=== PATIENT | female | born 2000 | race Caucasian/White ===

== ENCOUNTER 2025-01-12 12:50 | Emergency (ER) | payer MEDICARE, SELFPAY ==
--- NOTE | ~2025-01-12 | CT_ITS ---
EXAMINATION: CT ABDOMEN PELVIS WITH IV CONTRAST HISTORY: RLQ abd pain, N/V/D, syncope COMPARISON: There are no prior studies for comparison. TECHNIQUE: CT scan of the abdomen and pelvis was performed following administration of 85 mL Omnipaque 350 using standard departmental protocol. Coronal and sagittal reformatted images were generated and reviewed. Oral contrast material was not administered at the request of the referring physician. This CT exam was performed with one or more of the following dose reduction techniques: automated exposure control, adjustment of the mA and/or kV according to patient size, use of iterative reconstruction technique. DLP: 1417 mGy-cm FINDINGS: LOWER CHEST: There is mild subsegmental atelectasis at both lung bases. There is no pleural effusion. CARDIOVASCULATURE: The heart is normal in size. There is no pericardial effusion. LIVER: The liver is normal in size and contour. No liver mass is identified. The hepatic and portal veins are patent. GALLBLADDER / BILE DUCTS: The gallbladder is unremarkable. There is no intra or extrahepatic biliary ductal dilatation. SPLEEN: The spleen is normal in size. No focal splenic lesion is identified. PANCREAS: The pancreas is unremarkable in appearance. ADRENAL GLANDS: Within normal limits. KIDNEYS/RETROPERITONEUM: No renal calculi are identified. There is no hydronephrosis. No renal masses are identified. LYMPH NODES: No abdominal or pelvic lymphadenopathy. VASCULATURE: The abdominal aorta is normal in caliber. MESENTERY/PERITONEUM: No free fluid. No masses. There is no free intraperitoneal gas. STOMACH: The stomach is collapsed, limiting evaluation. SMALL BOWEL: The small bowel is normal in caliber. COLON: The colon is unremarkable. APPENDIX: Normal. URINARY BLADDER/PELVIC ORGANS: The urinary bladder is collapsed, limiting evaluation. The uterus is unremarkable. BONES / SOFT TISSUES: No suspicious bony or soft tissue abnormalities. CT/CT abdomen pelvis w IV con IMPRESSION: Unremarkable contrast-enhanced CT of the abdomen and pelvis. Electronically signed by: Yosef Hoyt MD 01/12/2025 03:21 PM [facility]
--- NOTE | ~2025-01-12 | CT_ITS ---
EXAMINATION: CT HEAD WITHOUT CONTRAST CLINICAL INFORMATION: Syncope, fall, LOC, head strike COMPARISON: None available. TECHNIQUE: Contiguous axial imaging was performed from the skull base to vertex without intravenous administration of contrast. This CT examination was performed using dose optimization techniques as appropriate, variously including the following: *Automated exposure control *Adjustment of mA and/or kV according to patient size (this includes techniques or standardized protocols for targeted exams where dose is matched to indication/reason for exam; i.e. extremities or head) *Use of iterative reconstruction technique DLP: 648 mGy-cm FINDINGS: Bony calvarium is intact. Skull base is intact. No acute intracranial hemorrhage, mass effect, midline shift, hydrocephalus or herniation. Lucero-white matter differentiation is normal. Posterior cranial fossa contents demonstrated no acute intracranial hemorrhage or mass effect. Polypoid mucosal thickening, maxillary sinuses. Sellar/suprasellar region demonstrated no gross masses. Tympanic cavities and mastoid air cells are aerated. No air-fluid levels in the included paranasal sinuses. CT/CT head/brain wo IV con IMPRESSION: No acute fracture, bony calvarium. No acute intracranial hemorrhage. Electronically signed by: Aguila Hoyos MD 01/12/2025 03:18 PM [facility]
--- NOTE | 2025-01-12 12:55 | ED.ABDPAIN ---
HPI - Abdominal Pain General Chief Complaint: Abdominal Pain Stated Complaint: RLQ PAINVOMITING,SYNCOPE PER EMS Time Seen by Provider: 01/12/25 12:55 Source: patient, EMS, RN notes reviewed and old records reviewed Mode of arrival: EMS History of Present Illness ED Provider: Mojgan Nguyen PA-C HPI narrative: 24-year-old female with a past medical history anemia, anxiety, presenting to the ED via EMS complaining of RLQ abdominal pain, nausea, vomiting, diarrhea since 05:00AM with syncopal episode this morning with +head strike & LOC on kitchen island. Admits to headache and continued nausea. Denies anticoagulation use. Reports blood streaks in emesis. Denies fever, chills, recent travel, suspicious food intake, sick contacts, dysuria/hematuria. LMP 3 weeks ago. Related Data Previous Rx's ?Medication ?Instructions ?Recorded ondansetron 4 mg disintegrating 4 mg PO Q8H PRN nausea and 01/12/25 tablet vomiting #10 tabs Allergies Allergy/AdvReac Type Severity Reaction Status Date / Time Penicillins Allergy Hives Verified 01/12/25 13:11 acetaminophen [From Tylenol] AdvReac Unknown Verified 01/12/25 13:11 aspirin [ASA] AdvReac Unknown Verified 01/12/25 13:11 Review of Systems Review of Systems Yes all other systems are reviewed and are negative Constitutional: Reports as per HPI Denies Abnormal speech present [facility] Past Medical History Attestation statement: The following information was validated with the patient. Source: old records reviewed Social History Social History Smoked in Last 30 Days: No Use of substances other than those prescribed or required for medical reasons: Yes Substance Use Type: Marijuana Advance Directives: No Advance Directives Information Provided: Yes Do you have a plan to hurt others: No Plan Physical Exam ED Vital Signs: Vital Signs - 24 hr 01/12/25 13:02 01/12/25 13:29 01/12/25 13:30 Temperature 98.5 F Pulse Rate 81 73 77 Respiratory Rate 20 Blood Pressure 105/58 L 95/51 L 100/61 Pulse Oximetry 96 Oxygen Delivery Method Room Air 01/12/25 13:30 01/12/25 16:28 Temperature Pulse Rate 92 82 Respiratory Rate 16 Blood Pressure 95/57 L 117/78 Pulse Oximetry 99 Oxygen Delivery Method Room Air BMI result Body Mass Index 40.0 Const General: cooperative, healthy appearing and no acute distress Orientation/consciousness: patient oriented x3 Limitations: no limitations HENMT Head: Yes normal to inspection, Yes No palpable skull fracture present, Yes atraumatic, No Avendano's sign and No raccoon eyes Ears: hearing grossly normal bilaterally General nose exam: Normal external nose present Face and sinus: Yes normal facial exam Mouth: Normal oral and palatal mucosa present Throat: Yes posterior oropharynx normal, Yes tonsils normal, Yes uvula midline, No peritonsillar mass, No uvula laterally displaced and No uvular edema Eyes General: appearance normal, both eyes and all related structures Pupils: Equal, round and reactive pupils present EOM: EOMs intact bilaterally Neck Neck: Yes normal visual inspection and Yes no meningeal signs Resp Effort & Inspection: normal respiratory effort and no respiratory distress Auscultation: clear to auscultation bilaterally, no crackles and no wheezes Cardio Rate: regular rate Heart sounds: S1 normal heart sound present and S2 normal heart sound present GI Inspection: Yes normal to inspection Palpation (GI): Soft to palpation, Tenderness to palpation present (GI) in the RLQ; with no rebound tenderness, no guarding and not rigid General: Yes no CVA tenderness Back/Spine/Pelvis Back: no CVA tenderness Skin Rashes: no rashes Wounds: no wounds Neuro General: patient oriented x3, tone normal, moves all extremities, no meningeal signs, no focal motor deficits and CN's II-XI intact bilaterally Cranial nerves: Yes CN's II-XII intact bilaterally, Yes Equal, round and reactive pupils present and Yes Bilaterally intact EOM present Cognition (Neuro): normal cognition Speech: No Abnormal speech present Motor exam (neuro): 5/5 motor strength present throughout Extrem General: Yes normal to inspection Course Course Course Narrative: -1528--mild leukocytosis at 13.1. H/H is stable. Labs otherwise reassuring. Troponin negative. HCG negative. -COVID/flu/RSV testing negative CT head/brain wo IV con IMPRESSION: No acute fracture, bony calvarium. No acute intracranial hemorrhage. CT abdomen pelvis w IV con IMPRESSION: Unremarkable contrast-enhanced CT of the abdomen and pelvis. -orthostatic vital signs negative. > will p.o. trial and obtain stool studies if patient is able to provide sample -UA not infected, contaminated >> patient is tolerating p.o. in the ED without difficulty. Unable to provide stool sample for us. Feels comfortable for discharge home at this time. Will discharge home with prescription of Zofran Medical Decision Making Medical Decision Making [facility] Narrative: 24-year-old female with a past medical history anemia, anxiety, presenting to the ED via EMS complaining of RLQ abdominal pain, nausea, vomiting, diarrhea since 05:00AM with syncopal episode this morning with +head strike & LOC on kitchen island. On exam vital signs stable, NAD, nontoxic appearing, no focal neuro deficits, abdomen is soft with RLQ tenderness, no rebound or guarding, no CVAT. Concern for appendicitis vs ?Ectopic vs gastroenteritis/colitis vs dehydration. Concern for vasovagal syncope. Lower suspicion for ICH/fractures or meningitis/encephalitis. Plan: EKG, labs, UA, head CT, CT AP, IVF, re-evaluate Please refer to course for remaining clinical decision making, interpretation of labs/imaging results, and discussions with consultants and/or family members. Differential Diagnosis Differential Diagnoses: The differential diagnosis associated with the presentation includes As above Admission/Observation Consideration of admission/observation: Escalation of care including admission/observation considered Lab Data [facility] Lab Attestation statement: I reviewed the patient's lab results. 01/12/25 13:45 01/12/25 13:45 Labs: Lab Results 01/12/25 01/12/25 Range/Units 13:45 16:30 WBC 13.1 H (4.8-10.8) X10*3/uL RBC 4.02 L (4.20-5.50) X10*6/uL Hgb 11.8 L (12.0-16.0) g/dl Hct 35.1 L (37.0-47.0) % MCV 87.3 (80.0-98.0) fL MCH 29.4 (27.0-33.0) pg MCHC 33.6 (31.0-35.0) g/dl RDW 12.9 (11.0-16.0) % Plt Count 254 (160-400) X10*3/uL MPV 10.0 (9.4-12.3) fL Immature Gran % (Auto) 0.5 H (0.0-0.4) % Neut % (Auto) 94.2 H (45-73) % Lymph % (Auto) 2.0 L (20-40) % [place] % (Auto) 2.9 (2-11) % Eos % (Auto) 0.2 (0-4) % Baso % (Auto) 0.2 (0-2) % Lymph # (Auto) 0.3 L (1.2-4.9) X10*3/uL [place] # (Auto) 0.4 (0.1-1.2) X10*3/uL Eos # (Auto) 0.0 (0.0-0.4) X10*3/uL Baso # (Auto) 0.0 (0.0-0.2) X10*3/uL Abs Immat Gran (auto) 0.06 H (0.00-0.03) X10*3/uL Absolute Neuts (auto) 12.4 H (2.0-8.3) x10*3/uL Absolute Nucleated RBC 0.000 (0.0-0.012) X10*3/uL Nucleated RBC % (auto) 0.0 (0.0-0.2) /100WBC Smear Tech's Comments VERIFIED PT 11.9 (10.9-12.4) SEC INR 1.0 (0.9-1.1) Sodium 139 (135-145) mmol/L Potassium 4.1 (3.3-5.1) mmol/L Chloride 110 H (96-108) mmol/L Carbon Dioxide 21 L (22-29) mmol/L Anion Gap 12 (12-20) BUN 16 (9-16) mg/dL Creatinine 0.90 (0.5-1.4) mg/dL Estim Creat Clear Calc 142.5 Estimated GFR > 60 Random Glucose 108 (60-115) mg/dL Calcium 9.4 (8.4-10.2) mg/dL Magnesium 2.0 (1.6-2.6) mg/dL Total Bilirubin 0.4 (0.0-1.0) mg/dL Direct Bilirubin 0.1 (0.0-0.5) mg/dL AST 19 (5-31) U/L ALT 12 (0-31) U/L Alkaline Phosphatase 100 (39-117) U/L Troponin I High Sens < 2.7 (<3.5-17.0) ng/L Total Protein 7.9 (6.5-8.0) g/dL Albumin 4.5 (3.5-5.0) g/dL Lipase 48 (8-78) U/L Beta HCG, Quant < 2 mIU/mL Urine Color Yellow Urine Appearance Clear Urine pH 8.0 (5.0-9.0) Ur Specific [place] >= 1.030 H (1.005-1.025) Urine Protein 30 (1+) H (Neg-Trace) mg/dL Urine Glucose (UA) Negative (Negative) mg/dL Urine Ketones Negative (Negative) mg/dL Urine Blood Negative (Negative) Urine Nitrite Negative (Negative) Ur Leukocyte Esterase Negative (Negative) Urine RBC 0-2 (0-2) /HPF Urine WBC 0-5 (0-5) /HPF Ur Squamous Epith Cells 11-20 (0-2) /HPF Urine Bacteria 1+ (None Seen) Hyaline Casts 0-2 (0-2) /LPF Influenza Type A (PCR) NEGATIVE (Negative) Influenza Type B (PCR) NEGATIVE (Negative) RSV RNA Qual (PCR) NEGATIVE (Negative) SARS-CoV-2 RNA (RT-PCR) NEGATIVE (Negative) Independent Interpretation I performed an independent interpretation of an: EKG and CT Scan Radiology Impression Discussion of test interpretation with radiology: I have reviewed the radiologist's reading. Independent Historian Clinical information obtained from an independent historian. History obtained from or confirmed by: EMS External Record Review External record reviewed: Inpatient record, Office record, Outpatient record, Prior outpatient labs, Prior outpatient radiology, Primary care record and Outside ED record Tests considered The following testing was considered but not selected: As above Prescription Management I considered prescription management with: Pain Medication Chronic Conditions Patient?s care impacted by: Other Social Determinants Patient?s care significantly limited by Social Determinants of Health including: Other Social Determinant of Health Medications Administered Discontinued Medications Generic Name Dose Route Start Last Admin Trade Name Freq PRN Reason Stop Dose Admin Al Hydroxide/Mg Hydroxide 30 ml 01/12/25 15:34 01/12/25 15:40 Magnesium Hydrox/Alum Hydrox 30 Ml Oral.Susp PO 01/12/25 15:35 Not Given ONCE ONE Famotidine 20 mg 01/12/25 13:06 01/12/25 13:30 Famotidine/Pf 20 Mg/2 Ml Vial IVPUSH 01/12/25 13:07 20 mg ONCE ONE Administration Sodium Chloride 1,000 mls @ 999 mls/hr 01/12/25 13:15 01/12/25 17:16 Ns IV 01/12/25 14:15 Infused .Q1H1M WILLIS Infusion Iohexol 100 ml 01/12/25 14:57 01/12/25 14:57 Iohexol 350 Mg/Ml 100 Ml Infus..Btl IV 01/12/25 14:58 85 ml ONCE ONE Administration Discharge Plan Discharge Clinical Impression: Gastroenteritis, Vasovagal syncope Patient Disposition: Home, Self-Care Instructions: Syncope (DC), Gastroenteritis (DC) Additional Instructions: You likely have viral gastroenteritis Zofran as an antinausea medication, please take as prescribed Your blood work and imaging studies are reassuring today No antibiotics are indicated at this time Make sure you are staying hydrated. Drink plenty of fluids. Rest Alternate Tylenol and Motrin at home as needed for body aches and fever Follow-up with your doctor. If symptoms persist or worsen return to the emergency department *If you are a child & not tolerating liquid or urinating for more than 6 hours, or fevers are uncontrolled with medications at home, return to the emergency department* Prescriptions: New ondansetron 4 mg tablet,disintegrating 4 mg PO Q8H PRN (Reason: nausea and vomiting) Qty: 10 0RF Referrals: Luba Hyde MD [Primary Care Provider] - 3 days Print Language: Panamanian
[2025-01-12 12:58] VITALS: BP 105/65; PULSE 80; O2SAT 95
[2025-01-12 13:02] VITALS: BP 105/58; PULSE 81; RESP 20; TEMP 36.9; O2SAT 96; BMI 40.0
--- NOTE | 2025-01-12 13:06 | ECG_ITS ---
Test Reason : SYNCOPE Blood Pressure : */* mmHG Vent. Rate : 84 BPM Atrial Rate : 84 BPM P-R Int : 162 ms QRS Dur : 84 ms QT Int : 360 ms P-R-T Axes : 38 23 30 degrees QTcB Int : 425 ms Normal sinus rhythm with sinus arrhythmia Normal ECG No previous ECGs available Referred By: Mojgan Nguyen Electronically Signed By: DARRELL HA MD
--- NOTE | 2025-01-12 13:18 | PC.NURSE ---
pt is alert and oriented, skin pwd, respirations even and unlabored, pt reports around 0500 started with vomiting/diarrhea and right sided abd pain, after one of the vomiting episodes felt really lightheaded and passed out in her kitchen hitting the left side of her head on a kitchen counter, bowel sounds in 4 quadrants, abd soft but slightly tender on the right mid/lower abd, vs stable and ns on the monitor
[2025-01-12 13:29] VITALS: BP 95/51; PULSE 73
[2025-01-12 13:30] VITALS: BP 100/61; BP 95/57; PULSE 77; PULSE 92
[2025-01-12] MEDS: Famotidine/PF 20 MG/2 ML VIAL IVPUSH (13:30)
[2025-01-12] MEDS: 0.9 % Sodium Chloride 1,000 ML 999 ML IV (13:31)
[2025-01-12 13:54] LABS: Basophils Percent Auto 0.2 % (0-2); Eosinophils Percent Auto 0.2 % (0-4); Hematocrit 35.1 % (37.0-47.0); Hemoglobin 11.8 g/dl (12.0-16.0); Imm Gran Abs Auto 0.06 X10*3/uL (0.00-0.03); Imm Gran Pct Auto 0.5 % (0.0-0.4); Lymphocytes Absolute Auto 0.3 X10*3/uL (1.2-4.9); MANUAL DIFF FLAG SCAN; Mean Corpuscular HGB Conc 33.6 g/dl (31.0-35.0); Mean Corpuscular Hemoglobin 29.4 pg (27.0-33.0); Mean Corpuscular Volume 87.3 fL (80.0-98.0); Monocytes Absolute Auto 0.4 X10*3/uL (0.1-1.2); Monocytes Percent Auto 2.9 % (2-11); Neutrophils Absolute Auto 12.4 x10*3/uL (2.0-8.3); Neutrophils Percent Auto 94.2 % (45-73); Platelet Count 254 X10*3/uL (160-400); Red Blood Count 4.02 X10*6/uL (4.20-5.50); Red Cell Distribution Width 12.9 % (11.0-16.0); SCAN SMEAR FLAG 1; White Blood Count 13.1 X10*3/uL (4.8-10.8)
[2025-01-12 14:03] LABS: Prothrombin Time 11.9 SEC (10.9-12.4)
[2025-01-12 14:14] LABS: SLIDE REVIEW VERIFIED
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
--- OUTSIDE RECORDS SUMMARY | 2025-01-12 14:15 | XMS_ITS | Clinical Summary ---
Author Organization 175 [facility] Address [address] [place] [address] Phone Care Team Providers Care Industrial Electrician Name Role Phone Luba Hyde MD Primary Care Provider [phone] Allergies Active Allergy Reactions Criticality Noted Date Comments Amoxicillin 05/06/2023 Horse Dander 10/17/2021 Horse : Any pet fur Other 05/06/2023 cucumbers Shellfish Containing Products High 2020 [employer] [place] Hives 02/17/2024 Throat gets itchy Medications acetaminophen (TYLENOL) 500 mg tablet Take 1 tablet by mouth every 8 hours as needed for Fever or Pain. Active albuterol HFA (PROAIR HFA ; PROVENTIL HFA ; VENTOLIN HFA) 90 mcg/actuation inhaler INHALE 2 PUFFS INTO THE LUNGS EVERY 4 HOURS NEEDED FOR WHEEZING OR SHORTNESS OF BREATH. 3 Active benzonatate (TESSALON) 100 mg capsule Take 1 Capsule by mouth 3 times daily as needed for Cough. 4 Active budesonide (RHINOCORT AQ) 32 mcg/actuation nasal spray 2 Sprays by Nasal route daily. Two sprays into each nostril daily. Active cetirizine (ZyrTEC) 10 mg tablet Take 1 Tablet by mouth daily. 4 Active diphenhydrAMINE (BENADRYL) 25 mg capsule Take 25 mg by mouth at bedtime as needed for Itching. Active etonogestrel-elut ing contraceptive device (Nexplanon) 68 mg implant subdermal implant Inject 68 mg into the skin Once. 4 Active famotidine (PEPCID) 20 mg tablet Take 40 mg by mouth 2 times daily. Active fexofenadine (JOANNA) 180 mg tablet Take 1 Tablet by mouth daily. 1 tab nightly 4 Active fluticasone furoate (Arnuity Ellipta) 200 mcg/actuation blister with device inhaler Inhale 2 Puffs into the lungs 2 times daily. 4 Active fluticasone HFA (FLOVENT HFA) 110 mcg/actuation inhaler Inhale 2 Puffs into the lungs 2 times daily. Active ibuprofen (ADVIL,MOTRIN) 800 mg tablet Take 1 Tablet by mouth every 8 hours as needed for Pain (heavy and painful periods). 3 Active lamoTRIgine (LaMICtal) 200 mg tablet Take 200 mg by mouth at bedtime. Total daily dose of 350mg. Active levothyroxine (SYNTHROID, LEVOTHROID) 137 mcg tablet Take 1 Tablet by mouth daily. 4 Active LORazepam (ATIVAN) 0.5 mg tablet Take 1 Tablet by mouth every 4 hours as needed. Active montelukast (SINGULAIR) 10 mg tablet Take 1 Tablet by mouth at bedtime for 360 days. 4 04/22/20 25 Active OLANZapine (ZyPREXA) 5 mg tablet Take 5 mg by mouth at bedtime. Active pantoprazole (PROTONIX) 20 mg EC tablet TAKE 1 TABLET BY MOUTH DAILY. 4 Active sertraline (ZOLOFT) 50 mg tablet Take 75 mg by mouth at bedtime. Take 1 and a 1/2 tablet by mouth every night. Active valACYclovir (VALTREX) 500 mg tablet Take 1 Tablet by mouth daily. 4 Active trazodone HCl (TRAZODONE ORAL) Take 100 mg by mouth at bedtime. Active polyethylene glycol (PEG) 17 gram/dose oral powder Take 17 g by mouth at bedtime. If loose stools x 2 d, give qod. Active ferrous sulfate 325 mg (65 mg iron) EC tablet TAKE 1 TABLET BY MOUTH DAILY. 30 tablet 4 4 Active metFORMIN (GLUCOPHAGE) 850 mg tablet Take 1 tablet (850 mg total) by mouth 1 (one) time each day with breakfast. 90 tablet 4 Active ondansetron (ZOFRAN) 4 mg tablet Take 1 tablet (4 mg total) by mouth every 8 (eight) hours if needed for nausea or vomiting. for nausea 30 tablet 1 5 01/08/20 25 Active Problems Problem Noted Date Diagnosed Date Asthma 01/29/2024 Gastroesophageal reflux disease without esophagi tis 10/17/2021 Marijuana use 10/17/2021 Obesity (BMI 30-39.9) 10/17/2021 Acquired flat foot 10/04/2021 Overview (09/14/2024): Wearing orthotics. Allergic rhinitis 10/04/2021 Anemia 10/04/2021 Chronic low back pain 10/04/2021 Overview (09/14/2024): Midline, without sciatica. Followed by PSS, did PT w/ good effect. Chandni's thyroiditis 10/04/2021 Mild intermittent asthma 10/04/2021 PTSD (post-traumatic stress disorder) 10/04/2021 Overview (09/14/2024): Med mngmt by [facility], living in supportive program, has case checker. Encounters Date Type Department Care Team Description 12/09/2024 11:15 AM EST Office Visit Internal Medicine [address] [phone] Olu Davis MD Dysmenorrhea (Primary Dx); Gastroesophageal reflux disease without esophagitis; Nausea and vomiting, unspecified vomiting type; Positive urine test 12/01/2024 Telephone Internal Medicine [address] [phone] Luba Hyde MD Abdominal Pain 11/04/2024 Telephone Internal Medicine [address] [phone] Jennifer Pichardo MA Request For Order(s) ([facility] Order #[id number]/) 11/03/2024 Telephone Internal Medicine [address] [phone] Jennifer Pichardo MA Request For Order(s) ([facility] Order #[id number]/) 11/02/2024 Telephone Internal Medicine - [address] [place] [address] Luba Hyde MD Faxed form from Last 3 Months Immunizations Name Administration Dates Next Due Influenza Quadravalent, MDCK , 0.5ml, preservative free (Flucelvax) 6mo and older 10/17/2021 Surgical History Surgery Date Site/Laterality Comments WISDOM TOOTH EXTRACTION PROCEDURE: HISTORICAL WISDOM TEETH EXTRACTION Medical History Medical History Date Comments Environmental allergies 10/04/2021 DX:Envir onmental allergies; COMMENT: Positive RAST, animals w/ fur, horses, ragweed, grass, pollen, trees, pollen extract. Allergic rhinitis 10/04/2021 DX:Allergic rh initis Mild intermittent asthma 10/04/2021 DX:Mild intermittent asthma Anemia 10/04/2021 DX:Anemia Chandni's thyroiditis 10/04/2021 DX:Omar wu's thyroiditis Chronic low back pain 10/04/2021 DX:Chronic low back pain; COMMENT: Midline, without sciatica. Followed by [facility], did PT w/ good effect. Acquired flat foot 10/04/2021 DX:Acquired f lat foot; COMMENT: Wearing orthotics. PTSD (post-traumatic stress disorder) 10/04/2021 DX:PTSD (post-traumatic stress disorder); COMMENT: Med mngmt by [facility], living in supportive program, has case checker. Nexplanon in place DX:Nexplanon in place; COMMENT: 01/2022 at [facility] per pt report Family History Medical History Relation Name Comments No Known Problems Maternal Grandfather Breast cancer Maternal Grandmother Breast cancer Mother Cervical cancer Mother No Known Problems Paternal Grandfather No Known Problems Paternal Grandmother Uterine cancer Neg Hx Relation Name Status Comments Maternal Grandfather Maternal Grandmother Mother Alive Paternal Grandfather Paternal Grandmother Social History Tobacco Use Types Packs/Day Years Used Date Smoking Tobacco: Never Smokeless Tobacco: Never Alcohol Use Standard Drinks/Week Comments Yes 0 (1 standard drink = 0.6 oz pur e alcohol) Comments Unknown Sex and Gender Information Value Date Recorded Sex Assigned at Not on file Legal Sex Female 7:47 PM EST Gender Identity Not on file Sexual Orientation Not on file Obstetrics History Last Filed Vital Signs Vital Sign Reading Time Taken Comments Blood Pressure 110/70 12/09/2024 11:13 AM EST Pulse 81 12/09/2024 11:13 AM EST Temperature 36.7 ??C (98.1 ??F) 12/09/2024 11:[address] Respiratory Rate - - Oxygen Saturation 98% 12/09/2024 11:13 AM EST Inhaled Oxygen Concentration - - Weight 122 kg (269 lb 9.6 oz) 12/09/2024 11:13 A M EST Height 180.3 cm (5' 11 ) 05/10/2024 2:15 PM EDT Body Mass Index 37.6 05/10/2024 2:15 PM EDT Plan of Treatment Upcoming Encounters Date Type Department Care Team (Late st Contact Info) Description 01/13/2025 8:30 AM EST Office Visit [facility] Hematology Oncology [address] [place] [address] Anika Negron PA [address] [place] [address] 02/17/2025 1:00 PM EDT Office Visit Obstetrics and Gynecology - [address] [phone] Pebbles Vargas, [place] [address] [place] [address] 02/22/2025 9:00 AM EDT Office Visit Internal Medicine - [place] [address] [phone] Luba Hyde MD [address] [phone] 03/03/2025 10:00 AM EDT Consult Endocrinology - [address] [phone] Liz Lopez MD [address] [place] [address] Health Maintenance Due Date Last Done Comments HPV Vaccines (1 - 3-dose series) 2014 DTaP,Tdap,and Td Vaccines (1 - Tdap) 2018 Hepatitis A Vaccines (1 of 2 - Risk 2-dose series) 2018 Hepatitis B Vaccines (1 of 3 - 19+ 3-dose series) 2018 Pneumococcal Vaccine: Pediatrics (0 to 5 Years) and At-Risk Patients (6 to 64 Years) (1 of 2 - PCV) 2018 Depression Screening 11/01/2022 Medicare Annual Wellness Visit 11/01/2022 Social Influencers of Health Screening 11/01/2022 COVID-19 Vaccine (1 - 2023-2 5 season) 2024 Influenza Vaccine (#1) 2024 10/17/2021 Cervical Cancer Screening: Pap Smear 03/03/2026 03/03/2023, 03/03/2023, 03/03/2023 Cholesterol Screening (Lipid Panel) 01/07/2028 01/07/2023 Gonorrhea/Chlamydia Screening Discontinued 02/17/2024 HIV Screening Completed 02/17/2024 Hepatitis C Screening Completed 02/17/2024 HIB Vaccines Aged Out No longer eligi ble based on patient's age to complete this topic IPV Vaccines Aged Out No longer eligi ble based on patient's age to complete this topic MMR Vaccines Aged Out No longer eligi ble based on patient's age to complete this topic Meningococcal ACWY Vaccine Aged Out N o longer eligible based on patient's age to complete this topic Meningococcal B Vacine Aged Out No lo nger eligible based on patient's age to complete this topic RSV Immunization Patients Under 20 months Aged Out No longer eligible based on patient's age to complete this topic Varicella Vaccines Aged Out No longer eligible based on patient's age to complete this topic Procedures Procedure Name Priority Date/Time Associated Diagnosis Comments CBC WITH AUTO DIFFERENTIAL Routine 12/09/2024 11:34 AM EST Dysmenorrhea Gastroesophageal reflux disease without esophagitis Nausea and vomiting, unspecified vomiting type LIPASE Routine 12/09/2024 11:34 AM EST Dysmenorrhea Gastroesophageal reflux disease without esophagitis Nausea and vomiting, unspecified vomiting type THYROID STIMULATING HORMONE Routine 12/09/2024 11:34 AM EST Dysmenorrhea Gastroesophageal reflux disease without esophagitis Nausea and vomiting, unspecified vomiting type COMPREHENSIVE METABOLIC PANEL Routine 12/09/2024 11:34 AM EST Dysmenorrhea Gastroesophageal reflux disease without esophagitis Nausea and vomiting, unspecified vomiting type CBC AND DIFFERENTIAL Routine 12/09/2024 11:34 AM EST Dysmenorrhea Gastroesophageal reflux disease without esophagitis Nausea and vomiting, unspecified vomiting type HEPATITIS C SCREENING Routine 02/17/2024 HM HIV SCREENING Routine 02/17/2024 HM GONORRHEA/CHLAMYDIA SCRREENING Routine 02/17/2024 PAP SMEAR Routine 03/03/2023 LIPID PANEL Routine 01/07/2023 from Last 3 Months or Most Recently Relevant to Health Maintenance Results * (ABNORMAL) CBC auto differential (12/09/2024 11:34 AM EST) WBC 7.9 4.8 - 10.8 K/mcL LAB HEMETOLOGY METHOD 12/09/2024 2:21 PM [facility] RBC 3.90 3.80 - 4.80 M/mcL LAB HEMETOLOGY METHOD 12/09/2024 2:21 PM [facility] Hemoglobin 11.3(L) 11.5 - 16.0 g/dL LAB HEMETOLOGY METHOD 12/09/2024 2:21 PM [facility] Hematocrit 34.9(L) 35.0 - 47.0 % LAB HEMETOLOGY METHOD 12/09/2024 2:21 PM [facility] MCV 89.5 79.0 - 98.0 FL LAB HEMETOLOGY METHOD 12/09/2024 2:21 PM [facility] MCH 29.0 27.0 - 32.0 pcg LAB HEMETOLOGY METHOD 12/09/2024 2:21 PM [facility] MCHC 32.4 32.0 - 37.0 g/dL LAB HEMETOLOGY METHOD 12/09/2024 2:21 PM [facility] RDW 12.8 11.0 - 15.0 % LAB HEMETOLOGY METHOD 12/09/2024 2:21 PM [facility] Platelets 239 130 - 400 K/mcL LAB HEMETOLOGY METHOD 12/09/2024 2:21 PM [facility] MPV 11.3(H) 7.0 - 11.0 FL LAB HEMETOLOGY METHOD 12/09/2024 2:21 PM [facility] NRBC 0.0 <1.0 % LAB HEMETOLOGY METHOD 12/09/2024 2:21 PM [facility] NRBC Absolute 0.00 <0.10 K/mcL LAB HEMETOLOGY METHOD 12/09/2024 2:21 PM [facility] Neutrophils Relative 51.9 % LAB HEMETOLOGY METHOD 12/09/2024 2:21 PM [facility] Lymphocytes Relative 27.6 % LAB HEMETOLOGY METHOD 12/09/2024 2:21 PM [facility] Monocytes Relative 7.8 % LAB HEMETOLOGY METHOD 12/09/2024 2:21 PM [facility] Eosinophils Relative 12.1 % LAB HEMETOLOGY METHOD 12/09/2024 2:21 PM [facility] Basophils Relative 0.3 % LAB HEMETOLOGY METHOD 12/09/2024 2:21 PM [facility] Immature Granulocytes Relative 0.3 % LAB HEMETOLOGY METHOD 12/09/2024 2:21 PM [facility] Neutrophils Absolute 4.09 1.50 - 7.00 K/mcL LAB HEMETOLOGY METHOD 12/09/2024 2:21 PM EST [facility] Lymphocytes Absolute 2.17 1.00 - 5.00 K/mcL LAB HEMETOLOGY METHOD 12/09/2024 2:21 PM EST [facility] Monocytes Absolute 0.61 0.20 - 1.00 K/[facility] LAB HEMETOLOGY METHOD 12/09/2024 2:21 PM EST [facility] Eosinophils Absolute 0.95(H) 0.00 - 0.50 K/[facility] LAB HEMETOLOGY METHOD 12/09/2024 2:21 PM EST [facility] Basophils Absolute 0.02 0.00 - 0.20 K/[facility] LAB HEMETOLOGY METHOD 12/09/2024 2:21 PM EST [facility] Immature Granulocytes Absolute 0.02 0.00 - 0.03 K/[facility] LAB HEMETOLOGY METHOD 12/09/2024 2:21 PM EST [facility] Blood Venous blood specimen / Unknown Venipuncture / Unknown 12/09/2024 11:34 AM EST 12/09/2024 11:34 AM EST us Olu Davis MD LAB BLOOD ORDERABLES Final Resul t Performing Organization Address City/[facility] Co de Phone Number [facility] [address] [place] [address], * (ABNORMAL) Thyroid stimulating hormone (12/09/2024 11:34 AM EST) TSH 29.45(H) 0.40 - 4.00 mcIU/mL LAB CHEMISTRY METHOD 12/09/2024 2:36 PM EST [facility] Blood Venous blood specimen / Unknown Venipuncture / Unknown 12/09/2024 11:34 AM EST 12/09/2024 11:34 AM EST us Olu Davis MD LAB BLOOD ORDERABLES Final Resul t [facility] [address] [place] [address], [place] [phone] * Lipase (12/09/2024 11:34 AM EST) Pathologist [facility] Lipase 36 13 - 75 unit/L LAB CHEMISTRY METHOD 12/09/2024 3:22 PM EST [facility] Blood Venous blood specimen / Unknown Venipuncture / Unknown 12/09/2024 11:34 AM EST 12/09/2024 11:34 AM EST Olu Davis MD LAB BLOOD ORDERABLES Final Resul t Performing Organization Address [facility]/ZIP Co de Phone Number [facility] [address] [place] [address], [place] [phone] * (ABNORMAL) Comprehensive metabolic panel (12/09/2024 11:34 AM EST) [facility] Sodium 139 133 - 145 mmol/L LAB CHEMISTRY METHOD 12/09/2024 3:22 PM [facility] Potassium 4.5 3.5 - 5.5 mmol/L LAB CHEMISTRY METHOD 12/09/2024 3:22 PM [facility] Chloride 107 96 - 110 mmol/L LAB CHEMISTRY METHOD 12/09/2024 3:22 PM [facility] CO2 23 21 - 32 mmol/L LAB CHEMISTRY METHOD 12/09/2024 3:22 PM [facility] Anion Gap 9 3 - 11 LAB CHEMISTRY METHOD 12/09/2024 3:22 PM [facility] Glucose 86 70 - 100 mg/dL LAB CHEMISTRY METHOD 12/09/2024 3:22 PM [facility] BUN 6 5 - 25 mg/dL LAB CHEMISTRY METHOD 12/09/2024 3:22 PM [facility] Creatinine 0.90 0.50 - 1.10 mg/dL LAB CHEMISTRY METHOD 12/09/2024 3:22 PM [facility] eGFR 91 >=60 mL/min/1. 73m2 LAB CHEMISTRY METHOD 12/09/2024 3:22 PM [facility] Comment:Calculation based on the??Chronic Kidney Disease Epidemiology Collaboration (CKD-EPI) equation refit??without adjustment for race. BUN/Creatinine Ratio 6.7 LAB CHEMISTRY METHOD 12/09/2024 3:22 PM [facility] Calcium 9.4 8.5 - 10.5 mg/dL LAB CHEMISTRY METHOD 12/09/2024 3:22 PM [facility] AST (SGOT) 8(L) 10 - 42 unit/L LAB CHEMISTRY METHOD 12/09/2024 3:22 PM [facility] ALT (SGPT) 17 10 - 60 unit/L LAB CHEMISTRY METHOD 12/09/2024 3:22 PM [facility] Alkaline Phosphatase 93 42 - 121 unit/L LAB CHEMISTRY METHOD 12/09/2024 3:22 PM [facility] Total Protein 7.1 6.0 - 8.0 g/dL LAB CHEMISTRY METHOD 12/09/2024 3:22 PM [facility] Albumin 3.8 3.2 - 5.0 g/dL LAB CHEMISTRY METHOD 12/09/2024 3:22 PM [facility] Total Bilirubin 0.2 0.0 - 1.4 mg/dL LAB CHEMISTRY METHOD 12/09/2024 3:22 PM [facility] Blood Venous blood specimen / Unknown Venipuncture / Unknown 12/09/2024 11:34 AM EST 12/09/2024 11:34 AM EST us Olu Davis MD LAB BLOOD ORDERABLES Final Resul t [facility] [address] [place] [address], * HIV Screening (02/17/2024) HIV Screening Abstracted Historical Provider HEALTH MAINTENANCE Final Result * Hepatitis C Screening (02/17/2024) Hepatitis C Screening Abstracted Historical Provider HEALTH MAINTENANCE Final Result * Gonorrhea/Chlamydia Screening (02/17/2024) Gonorrhea/Chla mydia Screening Abstracted Historical Provider HEALTH MAINTENANCE Final Result * Pap smear (03/03/2023) 03/03/2023 Narrative HISTORICAL TESTING LAB RESULTING AGENCY - 03/12/2023 1:16 PM EDT [id number] THINPREP PAP, IMAGED: NEGATIVE FOR SQUAMOUS INTRAEPITHELIAL LESION AND MALIGNANCY . SHIFT IN AMBER, SUGGESTIVE OF BACTERIAL VAGINOSIS. KELLY HERNANDEZ(ASCP) (CASE ELECTRONICALLY SIGNED 03 12 2023) ADEQUACY: SATISFACTORY ENDOCERVICAL/TRANSFORMATION ZONE COMPONENT PRESENT. SOURCE: THINPREP PAP HPV IF ASCUS, CERVICAL, IMAGED CLINICAL INFORMATION: HPV IF DIAGNOSIS OF ASCUS. PAP HX NEGATIVE, [Z01.419] Result [facility] Veronika Jean CNM LAB CYTOLOGY ORDERABLES Final Result HISTORICAL TESTING LAB RESULTING AGENCY * (ABNORMAL) Lipid panel (01/07/2023) LDL/HDL Ratio 5(A) 0 - 4 Triglycerides 106 0 - 150 mg/dL Cholesterol 216(A) 0 - 200 mg/dL HDL 46 >=40 mg/dL LDL Cholesterol 149(A) 0 - 100 mg/dL Blood Venous blood specimen / Unknown Result [facility] Historical Provider LAB BLOOD ORDERABLES Zulema l Result from Last 3 Months or Most Recently Relevant to Health Maintenance [place] [address] [place] [address] MEDICARE MEDICAID - [place] Care Teams Industrial Electrician Relationship Specialty Start Date End Date Luba Hyde MD [address] [place] [phone] PCP - General Internal Medicine 09/27/21
[2025-01-12 14:17] LABS: Alanine Aminotransferase 12 U/L (0-31); Albumin Level 4.5 g/dL (3.5-5.0); Alkaline Phosphatase 100 U/L (39-117); Anion Gap 12 (12-20); Aspartate Amino Transferase 19 U/L (5-31); Bilirubin Direct 0.1 mg/dL (0.0-0.5); Bilirubin Total 0.4 mg/dL (0.0-1.0); Blood Urea Nitrogen 16 mg/dL (9-16); Calcium 9.4 mg/dL (8.4-10.2); Carbon Dioxide 21 mmol/L (22-29); Chloride 110 mmol/L (96-108); Creatinine Clr Calc Pharmacy 142.5; Estimated Glomerular Filt Rate > 60; Glucose Random 108 mg/dL (60-115); HCG Quantitative < 2 mIU/mL; Lipase 48 U/L (8-78); Potassium 4.1 mmol/L (3.3-5.1); Sodium 139 mmol/L (135-145); Total Protein 7.9 g/dL (6.5-8.0); Troponin-I High Sensitivity < 2.7 ng/L (<3.5-17.0)
[2025-01-12 14:43] LABS: Influenza A PCR NEGATIVE (Negative); Influenza B PCR NEGATIVE (Negative); Resp Syncy Virus RNA Qual PCR NEGATIVE (Negative); SARS COV2 PCR INHOUSE NEGATIVE (Negative)
[2025-01-12] MEDS: iohexoL 350 MG/ML 100 ML INFUS..BTL IV (14:57)
--- NOTE | 2025-01-12 15:40 | PC.NURSE ---
pt refused the magnesium hydroxide states she cant handle mint favors will vomit
[2025-01-12 16:28] VITALS: BP 117/78; PULSE 82; RESP 16; O2SAT 99
[2025-01-12 16:42] LABS: Appearance Urine Clear; Color Urine Yellow; Glucose Urine UA Negative (Negative); Leukocyte Esterase Urine Negative (Negative); Nitrite Urine Negative (Negative); Specific Gravity - Urine >= 1.030 (1.005-1.025); UMIC TRIGGER UACC YES; Urine Blood Negative (Negative); Urine Ketones Negative (Negative); Urine Protein 30 (1+) mg/dL (Neg-Trace)
[2025-01-12 16:57] LABS: Bacteria Urine 1+ (None Seen); Hyaline Casts Urine 0-2 /LPF (0-2); RBC Urine 0-2 /HPF (0-2); WBC Urine 0-5 /HPF (0-5)
[2025-01-12 17:52] VITALS: BP 108/81; PULSE 89; RESP 18; TEMP 36.5; O2SAT 98
== END 2025-01-12 17:53 | disposition home or self-care (01) ==
PROVIDERS: Physician Assistant; Emergency Provider Emergency Medicine Emergency Medical Services; PCP Internal Medicine
DX: K52.9 Noninfective gastroenteritis and colitis, unspecified (principal); R55 Syncope and collapse; R10.31 Right lower quadrant pain; R11.2 Nausea with vomiting, unspecified; R51.9 Headache, unspecified; I49.8 Other specified cardiac arrhythmias; R10.2 Pelvic and perineal pain; Z79.899 Other long term (current) drug therapy; Z03.818 Encounter for observation for suspected exposure to other biological agents ruled out
CPT/HCPCS: 0241U; 36415; 70450; 74177; 80048; 80076; 81001; 83690; 83735; 84484; 84702; 85025; 85610; 93005; 96361; 96374; 99285; Q9967

== ENCOUNTER → 2025-01-12 13:06 | Outpatient (BNV) | payer MEDICARE, SELFPAY | PROVIDERS: Emergency Provider Emergency Medicine Emergency Medical Services; PCP Internal Medicine; Visit Provider Internal Medicine Cardiovascular Disease | DX: I49.9 Cardiac arrhythmia, unspecified (principal) | CPT/HCPCS: 93010 ==

== ENCOUNTER → 2025-01-12 13:06 | Outpatient (BNV) | payer MEDICARE, SELFPAY | PROVIDERS: Emergency Provider Emergency Medicine Emergency Medical Services; PCP Internal Medicine; Visit Provider Radiology Diagnostic Radiology | DX: R55 Syncope and collapse (principal); R10.31 Right lower quadrant pain | CPT/HCPCS: 70450 ==